=== PATIENT | female | born 1960 | race African-American/Black ===

== ENCOUNTER 2016-06-09 09:58 | Emergency (ER) | payer OTHER ==
[~2016-06-09] VITALS: Ht 157.5 cm; Wt 81.7 kg
--- NOTE | ~2016-06-09 | EKG ---
[place] [address] [facility] [place] [address] ELECTROCARDIOGRAM REPORT Name: MARIA D ARCOS Room #: [facility]#: [id number] Admission: 06/09/16 Attend Phys: Discharge: Date of : 64 Report #: [id number] THIS REPORT FOR: //name// [facility] ED Test Date: 2016-06-09 Test Time: 10:07:23 Pat Name: MARIA D ARCOS Department: Room: Gender: F Machine Tailer: Jasmyne GONZALEZ : 1960 Requested By: Zohaib Rudolph Order Number: [id number] MD: Terrell Strong Measurements Intervals [place] Rate: 83 P: 21 AR: 136 QRS: 10 QRSD: 143 T: 113 QT: 410 QTc: 482 Interpretive Statements Sinus rhythm Left bundle branch block Compared to ECG 06/03/2016 22:03:53 No significant changes Electronically Signed On 06-09-2016 12:16:28 CDT by Terrell Strong [email or web address] <ELECTRONICALLY SIGNED> By: Terrell Strong MD 06/09/16 1216 1007 MD KEMAL Grover
[~2016-06-09 09:58] MED LIST: AEROECLIPSE II1 EACH MC; ALBUTEROL2.5 MG/0.5 INH; ALLEGRA180 MG PO; ALPRAZOLAM 0.50.5 M1 PO; ASPIR 8181 M1 PO; ASPIRIN EC81 M1 PO; ASPIRIN325 PO; CELLCEPT500 MG PO; CYCLOBENZAPRINE10 MG PO; DEXILANT60 MG PO; DIOVAN 80 MG TA80 M1 PO; DIOVAN HCT 80-1 EACH PO; DUEXIS 800-26.1 EACH PO; FLONASE 0.05%50 MCG NASAL; FOLIC ACID 1 MG1 MG PO; HYDROCODON-ACE1 EAC7 PO; HYDROCODONE-AP1 EAC6 PO; HYDROXYCHLOROQ200 M1 PO; HYSINGLA ER20 MG PO; IBUPROFEN 800800 M1 PO; IRON PO; MEDROL DOSPAK21 TA1 PO; MEDROL DOSPAK21 TAB PO; MEDROLDOSEPACK PO; MOBIC15 MG PO; MUCINEX TA600 MG/TA2 PO; NABUMETONE 750750 M1 PO; NORCO 5-325 TA1 EACH PO; PREDNISONE 20 M20 M1 PO; PREDNISONE 20 M20 MG PO; PROTONIX 20 MG20 M1 PO; PROTONIX40 M2 PO; RELAFEN750 MG PO; SINGULAIR 10 MG10 M1 PO; SYMBICORT160 MCG/4. INH; TRAMADOL 50 MG50 MG PO; TYLENOL325 MG PO; VITAMIN D1000 UNI1 PO; VITAMIN D22000 UNIT PO; VITAMIN D250000 UNIT PO; ZOFRAN ODT4 MG OR
[2016-06-09 11:03] LABS: ABSOLUTE NEUTROPHILS 2.6 thou/uL (1.4-8.2); BASOPHILS 0.9 % (0.0-2.0); EOSINOPHILS 0.8 % (0.0-3.0); HEMATOCRIT 35.6 % (37.0-47.0); HEMOGLOBIN 12.3 gm/dL (12.0-15.0); LYMPHOCYTES 33.6 % (24.0-44.0); MCH 32.2 pg (26.0-34.0); MCHC 34.7 g/dL (28.0-37.0); MCV 92.7 fL (80.0-100.0); MONOCYTES 10.5 % (1.0-8.0); PLATELET COUNT 242 thou/uL (150-400); POLYS 54.2 % (36.0-66.0); RBC 3.84 mil/uL (4.20-5.00); RDW 17.3 % (10.5-14.5); WBC 4.8 thou/uL (4.0-11.0)
[2016-06-09 11:09] LABS: MANUAL DIFF NO
[2016-06-09 11:16] LABS: APTT 25.4 Seconds (24.5-32.8); PROTIME 10.5 Seconds (9.3-11.4)
[2016-06-09 12:09] LABS: ANION GAP 9 mmol/L (7-16); BUN 16 mg/dL (7-18); CALCIUM 9.1 mg/dL (8.5-10.1); CHLORIDE 105 mmol/L (98-107); CO2 25 mmol/L (21-32); CREATININE 0.9 mg/dL (0.6-1.0); GLUCOSE 83 mg/dL (74-106); POTASSIUM 3.4 mmol/L (3.5-5.1); SODIUM 139 mmol/L (136-145)
[2016-06-09 12:32] LABS: ALBUMIN 3.8 g/dL (3.4-5.0); ALKALINE PHOSPHATASE 104 U/L (46-116); CK-MB MASS 0.8 ng/mL (<0.5-3.6); NT-PRO BRAIN NAT PEPTIDE 31 pg/mL (<300); SGOT 15 U/L (15-37); SGPT 25 U/L (30-65); TOTAL BILIRUBIN 0.3 mg/dL (<0.1-1.0); TOTAL PROTEIN 7.4 g/dL (6.4-8.2); TROPONIN-I < 0.04 ng/mL (<0.04-0.07)
[2016-06-09] MEDS ORDERED: NAPROSYN500 MG PO (12:59)
[2016-06-09] MEDS ORDERED: PREDNISONE 20 M20 MG PO (12:59)
[2016-06-09] MEDS ORDERED: AUGMENTIN 875-1 EACH PO (12:59)
[2016-06-09 13:17] VITALS: BP 115/73
== END 2016-06-09 13:18 | disposition home or self-care (01) ==
LOC: ER 09:58
PROVIDERS: Emergency Medicine
DX: R07.89 Other chest pain (principal); J30.9 Allergic rhinitis, unspecified; D86.9 Sarcoidosis, unspecified; J32.9 Chronic sinusitis, unspecified; M32.9 Systemic lupus erythematosus, unspecified; I10 Essential (primary) hypertension; K21.9 Gastro-esophageal reflux disease without esophagitis; Z90.710 Acquired absence of both cervix and uterus; Z88.5 Allergy status to narcotic agent

== ENCOUNTER 2016-07-22 08:40 | Emergency (ER) | payer OTHER ==
[~2016-07-22] VITALS: Ht 157.5 cm; Wt 81.7 kg
--- NOTE | ~2016-07-22 | EKG ---
[place] [address] [place] [address] ELECTROCARDIOGRAM REPORT Name: MARIA D ARCOS [facility] [id number] Admission: 07/22/16 Attend Phys: Discharge: Date of : 64 Report #: [id number] THIS REPORT FOR: //name// [facility] ED Test Date: 2016-07-22 Test Time: 08:44:57 Pat Name: MARIA D ARCOS Department: Room: Gender: F Colors Custodian: param hudson : 1960 Requested By: Sarai Christopher Order Number: [id number] MD: Troy Dang Measurements Intervals [place] Rate: 69 P: 53 TN: 165 QRS: 27 QRSD: 137 T: 33 QT: 467 QTc: 501 Interpretive Statements Sinus rhythm Left bundle branch block Compared to ECG 06/09/2016 10:07:23 No significant changes Electronically Signed On 07-22-2016 10:18:42 CDT by Troy Dang [email or web address] <ELECTRONICALLY SIGNED> By: Troy Dang MD, [facility] 07/22/16 1018 0844 0844 Troy Dang MD, FACC /EPI
[~2016-07-22 08:40] MED LIST changes: +AUGMENTIN 875-1 EACH PO; +NAPROSYN500 MG PO
[2016-07-22] MEDS ORDERED: COREG3.125 MG PO (09:08)
[2016-07-22 09:44] LABS: ANION GAP 10 mmol/L (7-16); BUN 14 mg/dL (7-18); CALCIUM 9.4 mg/dL (8.5-10.1); CHLORIDE 107 mmol/L (98-107); CO2 25 mmol/L (21-32); CREATININE 0.9 mg/dL (0.6-1.0); GLUCOSE 113 mg/dL (74-106); POTASSIUM 3.6 mmol/L (3.5-5.1); SODIUM 142 mmol/L (136-145)
[2016-07-22 09:47] LABS: BASOPHILS 0.8 % (0.0-2.0); EOSINOPHILS 1.4 % (0.0-3.0); HEMOGLOBIN 10.5 gm/dL (12.0-15.0); LYMPHOCYTES 45.2 % (24.0-44.0); MCHC 36.1 g/dL (28.0-37.0); MCV 94.1 fL (80.0-100.0); PLATELET COUNT 304 thou/uL (150-400); POLYS 42.6 % (36.0-66.0); RBC 3.08 mil/uL (4.20-5.00); WBC 4.7 thou/uL (4.0-11.0)
[2016-07-22 09:48] LABS: MANUAL DIFF NO
[2016-07-22 09:52] LABS: TROPONIN-I < 0.04 ng/mL (<0.04-0.07)
[2016-07-22] MEDS ORDERED: HYDROCODONE-AP1 EAC6 PO (10:45)
[2016-07-22] MEDS ORDERED: MOBIC7.5 MG PO (10:45)
[2016-07-22 11:11] VITALS: BP 120/79
== END 2016-07-22 11:14 | disposition home or self-care (01) ==
LOC: ER 08:40
PROVIDERS: Emergency Medicine
DX: M25.512 Pain in left shoulder (principal); I10 Essential (primary) hypertension; K21.9 Gastro-esophageal reflux disease without esophagitis; Z90.710 Acquired absence of both cervix and uterus; Z88.5 Allergy status to narcotic agent

== ENCOUNTER 2016-09-25 10:26 | Emergency (ER) | payer OTHER ==
[~2016-09-25] VITALS: Ht 157.5 cm; Wt 81.7 kg
--- NOTE | ~2016-09-25 | EKG ---
[address] [address] ELECTROCARDIOGRAM REPORT Name: ISRRAELMARIA D KATHYA [id number] Admission: 09/25/16 Attend Phys: Discharge: 09/25/16 Date of : 64 Report #: [id number] THIS REPORT FOR: //name// [facility] ED Test Date: 2016-09-25 Test Time: 11:01:06 Pat Name: MARIA D ARCOS Department: Room: Gender: F Sign Fabricator: JACKI : 1960 Requested By: Carlos Sawant Order Number: [id number] MD: Terrell Strong Measurements Intervals [place] Rate: 72 P: 23 MN: 142 QRS: 20 QRSD: 148 T: 33 QT: 470 QTc: 515 Interpretive Statements Sinus rhythm Left bundle branch block Compared to ECG 07/22/2016 08:44:57 No significant changes Electronically Signed On 09-25-2016 16:50:13 CDT by Terrell Strong [email or web address] <ELECTRONICALLY SIGNED> By: Terrell Strong MD 09/25/16 1650 00 00 Terrell Strong MD /APPLE
[~2016-09-25 10:26] MED LIST changes: +COREG3.125 MG PO; +MOBIC7.5 MG PO
[2016-09-25] MEDS ORDERED: NAPROSYN500 MG PO (12:53)
[2016-09-25 13:29] LABS: ABSOLUTE NEUTROPHILS 3.8 thou/uL (1.4-8.2); BASOPHILS 0.5 % (0.0-2.0); EOSINOPHILS 0.3 % (0.0-3.0); HEMATOCRIT 30.7 % (37.0-47.0); LYMPHOCYTES 33.7 % (24.0-44.0); MCH 33.8 pg (26.0-34.0); MCHC 35.7 g/dL (28.0-37.0); MCV 94.5 fL (80.0-100.0); MONOCYTES 9.3 % (1.0-8.0); PLATELET COUNT 230 thou/uL (150-400); POLYS 56.2 % (36.0-66.0); RBC 3.25 mil/uL (4.20-5.00); WBC 6.8 thou/uL (4.0-11.0)
[2016-09-25 13:38] LABS: MANUAL DIFF NO
[2016-09-25 13:46] LABS: CALCIUM 9.5 mg/dL (8.5-10.1); POTASSIUM 3.2 mmol/L (3.5-5.1)
[2016-09-25] MEDS ORDERED: POTASSIUM20 PO (14:09)
[2016-09-25 15:19] VITALS: BP 126/71
== END 2016-09-25 15:20 | disposition home or self-care (01) ==
LOC: ER 10:26
PROVIDERS: Nurse Practitioner
DX: R06.02 Shortness of breath (principal); R07.89 Other chest pain; E87.6 Hypokalemia; I10 Essential (primary) hypertension; K21.9 Gastro-esophageal reflux disease without esophagitis; M32.9 Systemic lupus erythematosus, unspecified; Z90.710 Acquired absence of both cervix and uterus; Z88.5 Allergy status to narcotic agent

== ENCOUNTER 2016-12-18 06:01 | Emergency (ER) | payer OTHER ==
[~2016-12-18] VITALS: Ht 157.5 cm; Wt 81.7 kg
--- NOTE | ~2016-12-18 | EKG ---
[address] [address] ELECTROCARDIOGRAM REPORT Name: MARIA D ARCOS [facility]: [facility] [id number] Admission: 12/18/16 Attend Phys: Discharge: 12/18/16 Date of : 64 Report #: [id number] THIS REPORT FOR: //name// [facility] ED Test Date: 2016-12-18 Test Time: 06:14:44 Pat Name: MARIA D ARCOS Department: Room: Gender: F Vocational Nursing Instructor: rosi : 1960 Requested By: Drake Ashford Order Number: [id number] MD: Terrell Strong Measurements Intervals [place] Rate: 81 P: 43 MN: QRS: 13 QRSD: 144 T: 71 QT: 454 QTc: 527 Interpretive Statements Sinus rhythm Left bundle branch block Compared to ECG 09/25/2016 11:01:06 AV block, complete (third-degree) now present Sinus rhythm no longer present Electronically Signed On 12-18-2016 20:59:35 RESULTS ENGINEER by Terrell Strong [email or web address] <ELECTRONICALLY SIGNED> By: Terrell Strong MD 12/18/16 2059 3 3 Terrell Strong MD /EPI
[~2016-12-18 06:01] MED LIST changes: +CIPRO500 MG PO; +LEVSIN0.125 MG PO; +ONDANSETRON HCL4 M2 PO; +POTASSIUM20 PO; +XANAX 0.5 MG0.5 MG PO
[2016-12-18 06:39] LABS: BASOPHILS 1.1 % (0.0-2.0); EOSINOPHILS 1.1 % (0.0-3.0); HEMATOCRIT 34.2 % (37.0-47.0); HEMOGLOBIN 11.5 gm/dL (12.0-15.0); LYMPHOCYTES 41.6 % (24.0-44.0); MCH 31.1 pg (26.0-34.0); MCHC 33.7 g/dL (28.0-37.0); MCV 92.5 fL (80.0-100.0); MONOCYTES 11.6 % (1.0-8.0); PLATELET COUNT 281 thou/uL (150-400); POLYS 44.6 % (36.0-66.0); RDW 15.6 % (10.5-14.5); WBC 4.5 thou/uL (4.0-11.0)
[2016-12-18 06:40] LABS: MANUAL DIFF NO
[2016-12-18 06:53] LABS: ANION GAP 11 mmol/L (7-16); BUN 17 mg/dL (7-18); CHLORIDE 108 mmol/L (98-107); CO2 24 mmol/L (21-32); CREATININE 0.9 mg/dL (0.6-1.0); GLUCOSE 99 mg/dL (74-106); POTASSIUM 3.8 mmol/L (3.5-5.1); SODIUM 143 mmol/L (136-145)
[2016-12-18 07:02] LABS: ALBUMIN 3.9 g/dL (3.4-5.0); ALKALINE PHOSPHATASE 105 U/L (46-116); SGOT 17 U/L (15-37); SGPT 27 U/L (30-65); TOTAL BILIRUBIN 0.3 mg/dL (<0.1-1.0); TROPONIN-I < 0.04 ng/mL (<0.06)
[2016-12-18] MEDS ORDERED: PREDNISONE 20 M20 MG PO (07:52)
[2016-12-18 08:13] VITALS: BP 155/71
== END 2016-12-18 08:10 | disposition home or self-care (01) ==
LOC: ER 06:01
PROVIDERS: Emergency Medicine
DX: R06.00 Dyspnea, unspecified (principal); M32.9 Systemic lupus erythematosus, unspecified; I10 Essential (primary) hypertension; K21.9 Gastro-esophageal reflux disease without esophagitis; D86.9 Sarcoidosis, unspecified; Z88.5 Allergy status to narcotic agent; Z90.710 Acquired absence of both cervix and uterus

== ENCOUNTER 2017-02-10 05:18 | Emergency (ER) | payer OTHER ==
[~2017-02-10] VITALS: Ht 157.5 cm; Wt 81.7 kg
--- NOTE | ~2017-02-10 | EKG ---
[address] [address] ELECTROCARDIOGRAM REPORT Name: ISRRAELMARIA D KATHYA Room #: [facility] [id number] Admission: 02/10/17 Attend Phys: Discharge: 02/10/17 Date of : 64 Report #: [id number] THIS REPORT FOR: //name// [facility] ED Test Date: 2017-02-10 Test Time: 07:07:09 Pat Name: MARIA D ARCOS Department: Room: Gender: F Cardiac Nurse Specialist: WALLACE : 1960 Requested By: Sarai Christopher Order Number: [id number] MD: Terrell Strong Measurements Intervals [place] Rate: 89 P: 11 TN: 140 QRS: 22 QRSD: 142 T: 144 QT: 417 QTc: 508 Interpretive Statements Sinus rhythm Left bundle branch block Compared to ECG 12/18/2016 06:14:44 No significant changes Electronically Signed On 02-10-2017 8:30:49 INFORMATION SECURITY SYSTEMS INSTRUCTOR by Terrell Strong [email or web address] <ELECTRONICALLY SIGNED> By: Terrell Strong MD 02/10/1730 6 6 Terrell Strong MD /APPLE
[2017-02-10 06:08] LABS: ANION GAP 9 mmol/L (7-16); BUN 20 mg/dL (7-18); CALCIUM 9.4 mg/dL (8.5-10.1); CHLORIDE 106 mmol/L (98-107); CO2 27 mmol/L (21-32); CREATININE 0.9 mg/dL (0.6-1.0); GLUCOSE 108 mg/dL (74-106); SODIUM 142 mmol/L (136-145)
[2017-02-10 06:15] LABS: ABSOLUTE NEUTROPHILS 6.4 thou/uL (1.4-8.2); ALBUMIN 3.7 g/dL (3.4-5.0); BASOPHILS 0.4 % (0.0-2.0); DIRECT BILIRUBIN < 0.1 mg/dL (<0.1-0.3); EOSINOPHILS 0.6 % (0.0-3.0); HEMATOCRIT 31.4 % (37.0-47.0); HEMOGLOBIN 11.4 gm/dL (12.0-15.0); LIPASE 258 U/L (73-393); LYMPHOCYTES 10.1 % (24.0-44.0); MCH 33.8 pg (26.0-34.0); MCHC 36.3 g/dL (28.0-37.0); MONOCYTES 6.5 % (1.0-8.0); PLATELET COUNT 255 thou/uL (150-400); POLYS 82.4 % (36.0-66.0); RBC 3.37 mil/uL (4.20-5.00); RDW 15.7 % (10.5-14.5); SGOT 22 U/L (15-37); SGPT 33 U/L (30-65); TOTAL BILIRUBIN 0.4 mg/dL (<0.1-1.0); TOTAL PROTEIN 7.2 g/dL (6.4-8.2); WBC 7.8 thou/uL (4.0-11.0)
[2017-02-10] MEDS ORDERED: CITRATE OF MAG296 ML PO (06:36)
[2017-02-10] MEDS ORDERED: PHENERGAN 25 MG25 M1 PO (06:36)
[2017-02-10] MEDS ORDERED: ZOFRAN ODT4 MG PO (06:36)
[2017-02-10 07:26] LABS: URINE BILIRUBIN NEGATIVE (Negative); URINE BLOOD NEGATIVE (Negative); URINE CLARITY CLEAR; URINE COLOR YELLOW; URINE GLUCOSE-RANDOM* NEGATIVE (Negative); URINE KETONES NEGATIVE (Negative); URINE LEUKOCYTES-REFLEX NEGATIVE (Negative); URINE NITRITE-REFLEX NEGATIVE (Negative); URINE PROTEIN (DIPSTICK) NEGATIVE (Negative); URINE SPECIFIC GRAVITY <= 1.005 (1.005-1.035); URINE UROBILINOGEN 0.2 E.U./dl (0.2-1.0)
[2017-02-10 07:28] VITALS: BP 129/77
== END 2017-02-10 07:30 | disposition home or self-care (01) ==
LOC: ER 05:18
PROVIDERS: Emergency Medicine
DX: R10.9 Unspecified abdominal pain (principal); I10 Essential (primary) hypertension; K21.9 Gastro-esophageal reflux disease without esophagitis; D86.9 Sarcoidosis, unspecified; Z90.710 Acquired absence of both cervix and uterus; Z88.6 Allergy status to analgesic agent

== ENCOUNTER 2017-02-14 08:11 | Emergency (ER) | payer OTHER ==
[~2017-02-14] VITALS: Ht 157.5 cm; Wt 81.7 kg
[~2017-02-14 08:11] MED LIST changes: +CITRATE OF MAG296 ML PO; +PHENERGAN 25 MG25 M1 PO; +ZOFRAN ODT4 MG PO
[2017-02-14 10:19] LABS: ABSOLUTE NEUTROPHILS 1.3 thou/uL (1.4-8.2); BASOPHILS 1.1 % (0.0-2.0); EOSINOPHILS 1.4 % (0.0-3.0); HEMATOCRIT 32.3 % (37.0-47.0); LYMPHOCYTES 46.1 % (24.0-44.0); MCH 31.4 pg (26.0-34.0); MCHC 34.1 g/dL (28.0-37.0); MCV 91.9 fL (80.0-100.0); MONOCYTES 10.3 % (1.0-8.0); PLATELET COUNT 238 thou/uL (150-400); POLYS 41.1 % (36.0-66.0); RBC 3.51 mil/uL (4.20-5.00); RDW 15.5 % (10.5-14.5); WBC 3.1 thou/uL (4.0-11.0)
[2017-02-14 10:27] LABS: CALCIUM 9.4 mg/dL (8.5-10.1); CREATININE 0.9 mg/dL (0.6-1.0)
[2017-02-14 10:32] LABS: ALBUMIN 3.5 g/dL (3.4-5.0); TOTAL BILIRUBIN 0.2 mg/dL (<0.1-1.0); TOTAL PROTEIN 6.9 g/dL (6.4-8.2)
[2017-02-14 11:14] LABS: URINE BILIRUBIN NEGATIVE (Negative); URINE BLOOD NEGATIVE (Negative); URINE CLARITY CLEAR; URINE COLOR YELLOW; URINE GLUCOSE-RANDOM* NEGATIVE (Negative); URINE KETONES NEGATIVE (Negative); URINE LEUKOCYTES NEGATIVE (Negative); URINE NITRITE NEGATIVE (Negative); URINE PROTEIN (DIPSTICK) NEGATIVE (Negative); URINE UROBILINOGEN 0.2 E.U./dl (0.2-1.0)
[2017-02-14] MEDS ORDERED: MIRALAX17 GM PO (11:24)
[2017-02-14 12:21] VITALS: BP 99/53
== END 2017-02-14 12:22 | disposition home or self-care (01) ==
LOC: ER 08:11
PROVIDERS: Physician Assistant
DX: K59.00 Constipation, unspecified (principal); R11.2 Nausea with vomiting, unspecified; M32.9 Systemic lupus erythematosus, unspecified; I10 Essential (primary) hypertension; K21.9 Gastro-esophageal reflux disease without esophagitis; D86.9 Sarcoidosis, unspecified; Z90.710 Acquired absence of both cervix and uterus; Z88.5 Allergy status to narcotic agent

== ENCOUNTER 2017-03-26 10:35 | Emergency (ER) | payer OTHER ==
[~2017-03-26] VITALS: Ht 157.5 cm; Wt 85.3 kg
--- NOTE | ~2017-03-26 | EKG ---
[place] [address] [facility] [place] [address] ELECTROCARDIOGRAM REPORT Name: MARIA D ARCOS [facility] [id number] Admission: 03/26/17 Attend Phys: Discharge: 03/26/17 Date of : 64 Report #: [id number] THIS REPORT FOR: //name// [facility] ED Test Date: 2017-03-26 Test Time: 12:23:01 Pat Name: MARIA D ARCOS Department: Room: Gender: F Certified Forklift Operator: KKODJOVI : 1960 Requested By: Sarai Christopher Order Number: [id number] MD: Troy Dang Measurements Intervals [place] Rate: 64 P: 7 [place]: 155 QRS: 16 QRSD: 120 T: 80 QT: 452 QTc: 467 Interpretive Statements Sinus rhythm Possible ventricular preexcitation Compared to ECG 02/10/2017 07:07:09 Left bundle-branch block no longer present Electronically Signed On 03-26-2017 17:33:12 STULL INSTALLER by Troy Dang [email or web address] <ELECTRONICALLY SIGNED> By: Troy Dang MD, [facility] 03/26/17 1733 1223 1223 Troy Dang MD, [facility] /EPI
[~2017-03-26 10:35] MED LIST changes: +MIRALAX17 GM PO
[2017-03-26] MEDS ORDERED: VALSARTAN-HCTZ1 EACH PO (11:51)
[2017-03-26] MEDS ORDERED: XALATAN2.5 ML OPHTHALMIC (11:51)
[2017-03-26] MEDS ORDERED: TOBRAMYCIN-DEXAM5 ML OPHTHALMIC (11:52)
[2017-03-26 12:20] LABS: ABSOLUTE NEUTROPHILS 2.4 thou/uL (1.4-8.2); BASOPHILS 0.8 % (0.0-2.0); EOSINOPHILS 0.6 % (0.0-3.0); HEMATOCRIT 35.3 % (37.0-47.0); HEMOGLOBIN 11.5 gm/dL (12.0-15.0); LYMPHOCYTES 36.1 % (24.0-44.0); MCH 29.3 pg (26.0-34.0); MCHC 32.6 g/dL (28.0-37.0); MCV 89.7 fL (80.0-100.0); MONOCYTES 10.6 % (1.0-8.0); PLATELET COUNT 280 thou/uL (150-400); POLYS 51.9 % (36.0-66.0); RBC 3.93 mil/uL (4.20-5.00); RDW 15.7 % (10.5-14.5); WBC 4.7 thou/uL (4.0-11.0)
[2017-03-26 12:27] LABS: ANION GAP 12 mmol/L (7-16); BUN 18 mg/dL (7-18); CALCIUM 9.7 mg/dL (8.5-10.1); CHLORIDE 105 mmol/L (98-107); CO2 27 mmol/L (21-32); CREATININE 0.9 mg/dL (0.6-1.0); GLUCOSE 96 mg/dL (74-106); POTASSIUM 3.5 mmol/L (3.5-5.1); SODIUM 144 mmol/L (136-145)
[2017-03-26 12:36] LABS: TROPONIN-I < 0.04 ng/mL (<0.06)
[2017-03-26 14:10] VITALS: BP 115/79
== END 2017-03-26 14:12 | disposition home or self-care (01) ==
LOC: ER 10:35
PROVIDERS: Emergency Medicine
DX: R53.83 Other fatigue (principal); R06.00 Dyspnea, unspecified; I10 Essential (primary) hypertension; K21.9 Gastro-esophageal reflux disease without esophagitis; Z90.710 Acquired absence of both cervix and uterus; Z88.5 Allergy status to narcotic agent; Z88.6 Allergy status to analgesic agent

== ENCOUNTER 2017-08-05 10:24 | Emergency (ER) | payer OTHER ==
[~2017-08-05] VITALS: Ht 157.5 cm; Wt 85.7 kg
[~2017-08-05 10:24] MED LIST changes: +TOBRAMYCIN-DEXAM5 ML OPHTHALMIC; +VALSARTAN-HCTZ1 EACH PO; +XALATAN2.5 ML OPHTHALMIC
[2017-08-05 10:50] LABS: URINE BILIRUBIN NEGATIVE (Negative); URINE BLOOD NEGATIVE (Negative); URINE CLARITY CLEAR; URINE COLOR YELLOW; URINE GLUCOSE-RANDOM* NEGATIVE (Negative); URINE KETONES NEGATIVE (Negative); URINE LEUKOCYTES NEGATIVE (Negative); URINE NITRITE NEGATIVE (Negative); URINE PROTEIN (DIPSTICK) NEGATIVE (Negative); URINE UROBILINOGEN 0.2 E.U./dl (0.2-1.0)
[2017-08-05 11:12] LABS: POTASSIUM 3.6 mmol/L (3.5-5.1)
[2017-08-05 11:15] LABS: ABSOLUTE NEUTROPHILS 2.2 thou/uL (1.4-8.2); EOSINOPHILS 0.8 % (0.0-3.0); HEMOGLOBIN 12.1 gm/dL (12.0-15.0); LYMPHOCYTES 30.5 % (24.0-44.0); MCHC 36.8 g/dL (28.0-37.0); MCV 92.4 fL (80.0-100.0); MONOCYTES 10.2 % (1.0-8.0); PLATELET COUNT 249 thou/uL (150-400); POLYS 57.5 % (36.0-66.0); RBC 3.57 mil/uL (4.20-5.00); RDW 15.5 % (10.5-14.5); WBC 3.8 thou/uL (4.0-11.0)
[2017-08-05 11:18] LABS: ALBUMIN 3.9 g/dL (3.4-5.0); DIRECT BILIRUBIN 0.1 mg/dL (<0.1-0.3); TOTAL BILIRUBIN 0.3 mg/dL (<0.1-1.0)
[2017-08-05] MEDS ORDERED: NORCO 5-325 TA1 EACH PO (11:45)
[2017-08-05 12:07] VITALS: BP 123/73
[2017-08-05 12:41] LABS: ANISOCYTOSIS 1+
== END 2017-08-05 12:08 | disposition home or self-care (01) ==
LOC: ER 10:24
PROVIDERS: Emergency Medicine
DX: M79.7 Fibromyalgia (principal); I10 Essential (primary) hypertension; K21.9 Gastro-esophageal reflux disease without esophagitis; Z90.10 Acquired absence of unspecified breast and nipple; Z90.710 Acquired absence of both cervix and uterus; Z88.5 Allergy status to narcotic agent; Z88.8 Allergy status to other drugs, medicaments and biological substances

== ENCOUNTER 2017-11-16 06:47 | Emergency (ER) | payer OTHER ==
[~2017-11-16] VITALS: Ht 157.5 cm; Wt 88.9 kg
--- NOTE | ~2017-11-16 | EKG ---
[place] [address] [facility] [place] [address] ELECTROCARDIOGRAM REPORT Name: ARCOSMARIA D NEWSOMENE [facility] [id number] Admission: 11/16/17 Attend Phys: Discharge: Date of : 64 Report #: [id number] THIS REPORT FOR: //name// [facility] ED Test Date: 2017-11-16 Test Time: 07:10:58 Pat Name: MARIA D ARCOS Department: Room: Gender: F Blood Donor Unit Assistant: [facility] : 1960 Requested By: Sarai Christopher Order Number: [id number] MD: Terrell Strong Measurements Intervals [place] Rate: 67 P: 42 [place]: 128 QRS: 21 QRSD: 147 T: 54 QT: 477 QTc: 504 Interpretive Statements Sinus rhythm Left bundle branch block Compared to ECG 03/26/2017 12:23:01 Left bundle-branch block now present Electronically Signed On 11-16-2017 8:22:20 CDT by Terrell Strong [email or web address] <ELECTRONICALLY SIGNED> By: Terrell Strong MD 11/16/17 0822 0710 9 Terrell Strong MD /APPLE
[2017-11-16] MEDS ORDERED: COZAAR 25 MG TA25 M1 PO (07:33)
[2017-11-16 07:43] LABS: ABSOLUTE NEUTROPHILS 2.3 thou/uL (1.4-8.2); BASOPHILS 1.4 % (0.0-2.0); EOSINOPHILS 1.2 % (0.0-3.0); HEMOGLOBIN 12.2 gm/dL (12.0-15.0); LYMPHOCYTES 38.4 % (24.0-44.0); MCH 32.2 pg (26.0-34.0); MCHC 34.9 g/dL (28.0-37.0); MCV 92.4 fL (80.0-100.0); MONOCYTES 10.8 % (1.0-8.0); PLATELET COUNT 244 thou/uL (150-400); POLYS 48.2 % (36.0-66.0); RBC 3.79 mil/uL (4.20-5.00); RDW 15.3 % (10.5-14.5); WBC 4.8 thou/uL (4.0-11.0)
[2017-11-16 08:05] LABS: ANION GAP 9 mmol/L (7-16); BUN 19 mg/dL (7-18); CHLORIDE 105 mmol/L (98-107); CO2 29 mmol/L (21-32); GLUCOSE 99 mg/dL (74-106); POTASSIUM 3.2 mmol/L (3.5-5.1); SODIUM 143 mmol/L (136-145)
[2017-11-16 08:14] LABS: TROPONIN-I <0.06 ng/mL (<0.06)
[2017-11-16] MEDS ORDERED: PREDNISONE 20 M20 M1 PO (10:44)
[2017-11-16 11:19] VITALS: BP 137/68
== END 2017-11-16 11:28 | disposition home or self-care (01) ==
LOC: ER 06:47
PROVIDERS: Emergency Medicine
DX: R07.89 Other chest pain (principal); M32.9 Systemic lupus erythematosus, unspecified; I10 Essential (primary) hypertension; K21.9 Gastro-esophageal reflux disease without esophagitis; Z90.710 Acquired absence of both cervix and uterus; Z88.5 Allergy status to narcotic agent; Z79.899 Other long term (current) drug therapy

== ENCOUNTER 2018-04-20 19:12 | Inpatient (IN) | payer OTHER ==
[~2018-04-20] VITALS: Ht 157.5 cm; Wt 83.9 kg
[~2018-04-20 19:12] MED LIST changes: +COZAAR 25 MG TA25 M1 PO
[2018-04-20 19:20] VITALS: BP 147/81
--- NOTE | 2018-04-20 20:00 | NUR ---
XRAY AT BEDSIDE
[2018-04-20 20:05] LABS: HEMOGLOBIN 10.5 gm/dL (12.0-15.0)
[2018-04-20 20:06] LABS: ABSOLUTE NEUTROPHILS 5.5 thou/uL (1.4-8.2); BASOPHILS 0.3 % (0.0-2.0); EOSINOPHILS 0.9 % (0.0-3.0); HEMATOCRIT 30.9 % (37.0-47.0); LYMPHOCYTES 5.2 % (24.0-44.0); MCH 30.9 pg (26.0-34.0); MCHC 33.9 g/dL (28.0-37.0); MCV 91.2 fL (80.0-100.0); MONOCYTES 4.7 % (1.0-8.0); PLATELET COUNT 255 thou/uL (150-400); POLYS 88.9 % (36.0-66.0); RBC 3.39 mil/uL (4.20-5.00); RDW 16.6 % (10.5-14.5); WBC 6.2 thou/uL (4.0-11.0)
[2018-04-20 20:11] LABS: CALCIUM 8.7 mg/dL (8.5-10.1); POTASSIUM 3.8 mmol/L (3.5-5.1)
[2018-04-20 20:18] LABS: ALBUMIN 3.4 g/dL (3.4-5.0); DIRECT BILIRUBIN 0.1 mg/dL (<0.1-0.3); TOTAL BILIRUBIN 0.2 mg/dL (<0.1-1.0)
[2018-04-20 22:58] LABS: URINE BILIRUBIN NEGATIVE (Negative); URINE BLOOD NEGATIVE (Negative); URINE CLARITY CLEAR; URINE COLOR YELLOW; URINE GLUCOSE-RANDOM* NEGATIVE (Negative); URINE KETONES NEGATIVE (Negative); URINE NITRITE-REFLEX NEGATIVE (Negative); URINE PROTEIN (DIPSTICK) NEGATIVE (Negative); URINE UROBILINOGEN 0.2 E.U./dl (0.2-1.0)
[2018-04-20 22:59] LABS: URINE LEUKOCYTES-REFLEX 1+ (Negative)
[2018-04-20 23:29] LABS: CASTS None Seen /LPF (None Seen); MUCUS None Seen strn/LPF (None Seen); SQUAMOUS 0-3 Few /LPF (0-3)
[2018-04-20 23:30] LABS: BACTERIA-REFLEX None Seen /HPF (None Seen); CRYSTALS None Seen /LPF (None Seen); URINE RBC None Seen /HPF (0-2); URINE WBC-REFLEX 0-5 Rare /HPF (0-5)
[2018-04-21 02:06] VITALS: BP 113/49
[2018-04-21 03:11] VITALS: BP 127/65
[2018-04-21 03:15] VITALS: BP 109/58
--- NOTE | 2018-04-21 05:00 | NUR ---
PT ARRIVED ON UNIT FROM ER AT APPROX. 0300. ADMITTED WITH FEVER AND BODY ACHES. NEGATIVE FOR FLU. UP WITH ASSIST TO BEDSIDE COMMODE. LORTAB PROVIDING PAIN RELIEF. RESTING COMFORTABLY. NO NEEDS VOICED. CALL LIGHT WITHIN REACH. WILL CONTINUE TO PROVIDE FREQUENT OBSERVATION.
[2018-04-21 06:08] LABS: HEMATOCRIT 26.5 % (37.0-47.0); MCH 31.2 pg (26.0-34.0); MCHC 33.8 g/dL (28.0-37.0); MCV 92.2 fL (80.0-100.0); RBC 2.87 mil/uL (4.20-5.00); RDW 16.6 % (10.5-14.5); WBC 4.6 thou/uL (4.0-11.0)
[2018-04-21 06:19] LABS: CALCIUM 8.1 mg/dL (8.5-10.1); CREATININE 0.8 mg/dL (0.6-1.0); POTASSIUM 3.3 mmol/L (3.5-5.1)
[2018-04-21 08:38] VITALS: BP 131/77
[2018-04-21] MEDS ORDERED: ASPIR-TRIN325 MG PO (15:56)
[2018-04-21 16:40] VITALS: BP 114/61
--- NOTE | 2018-04-21 16:54 | NUR ---
ASSESMENT COMPLETED. VSS. A/O. PAIN MANAGED BY MEDS ORDERED. NO NOTED SOA. NO NV. STAND BY WHEN UP. TMAX 100.6 TODAY. TYLENOL GIVEN. HAD SHOWER TODAY. PT FEELING BETTER THIS AFTERNOON. WILL CONT. TO MONITOR.
[2018-04-21 20:28] VITALS: BP 119/72
[2018-04-22 05:04] VITALS: BP 118/59
[2018-04-22 06:07] LABS: HEMATOCRIT 26.1 % (37.0-47.0); HEMOGLOBIN 8.7 gm/dL (12.0-15.0); MCH 30.4 pg (26.0-34.0); MCHC 33.3 g/dL (28.0-37.0); MCV 91.2 fL (80.0-100.0); RBC 2.86 mil/uL (4.20-5.00); RDW 16.6 % (10.5-14.5); WBC 3.6 thou/uL (4.0-11.0)
--- NOTE | 2018-04-22 06:51 | NUR ---
UP AD AIDE TO BS. C/O SEVERE HEADACHE, CHRONIC, SLEPT AFTER PM PRN DOSE GIVEN. TEMP 98.1 AT MIDNIGHT. SCDS ON. SMALL BM X 1.
[2018-04-22 07:46] VITALS: BP 118/63
--- NOTE | 2018-04-22 13:24 | NUR ---
Assumed pt care at 7am.Pt in and out of bed for activities.Assessment completed.vss.Pt was angry related to spicy fried egg served for breakfast. Rn told pt to order another tray but denied by fast food delivery driver.Pt called her to bring food for her from home.Dr Strong and Jamie here,order noted.Mri notified about lab drawn prior to pt coming for hip mri later today. Lozenges given for sore throat.Will continue to monitor.
--- NOTE | 2018-04-22 16:35 | NUR ---
ASSESSMENT-PT LIVES IN A GROUND LEVEL APT WITH HER . PT USES A CANE OUTSIDE OF THE HOME AND A WALKER INSIDE. SHE NAD HER DRIVE. PT HAS HAD [employer] SERVICES. PT HAS A STOOL RISER AND A TUB BAR AND CHAIR INSIDE OF THE TUB. THEYHAVE 2 SON AND 2 GRNDKIDS IN THE AREA. PT HAS A NEBULIZER AT HOME. HE DOES THE COOKING, CLEANING AND LAUNDRY. PT HAD HER HIP SURGERY [facility] BY DR PHILLIPS. FOLLOWING TO ASSIST WITH DC PLANNING.
[2018-04-22 22:43] VITALS: BP 126/59
[2018-04-23 05:22] VITALS: BP 134/67
--- NOTE | 2018-04-23 06:09 | NUR ---
Assumed care of pt at 1900. Pt a&ox4. Pt frustrated with her medical situation. Therapeutic communication used. Call light within reach. Will continue to monitor.
[2018-04-23 08:39] VITALS: BP 148/81
--- NOTE | 2018-04-23 09:12 | HC ---
[facility] [place] [address] CONSULTATION Name: MARIA D ARCOS Room #: 432-P ADM IN M.R.#: [id number] Admission: 04/21/18 ������������������ Attend Phys: Luann Ayala Discharge: ������������������ Date of : 64 Report #: [id number] THIS REPORT FOR: //name// CC: FAM physician/PCP Luann Faulkner MD DATE OF SERVICE: 04/22/2018 TYPE OF REPORT: Infectious disease consultation. ATTENDING PHYSICIAN: Luann Ayala M.D. REASON FOR CONSULTATION: Fever, yeast. HISTORY OF PRESENT ILLNESS: The patient is a 57-year-old -[place] woman admitted with history of fevers, chills, body aches and pains, sore throat and right hip pain. The patient is an immunocompromised host on account of treatment for sarcoidosis and lupus with combination of Rituxan monthly, CellCept and hydroxychloroquine daily. The patient is afebrile since admission now but had high temperatures on the date of admission. The patient obviously is still complaining of some right hip pain since her surgery was done about couple of months ago at [facility]. The patient mainly complaining now that she does not want to have an MRI because of the severe sore throat and other than that, she brings no other complaints to my attention. She relates the above symptoms but she appears to have improved. DRUG ALLERGIES: MORPHINE and HYDROMORPHONE. MEDICATIONS: She is currently on treatment with benzocaine/menthol/cetirizine for sore throat, fluconazole nasal sprays, Latanoprost eyedrops, alprazolam, mycophenolate mofetil 1000 mg by mouth twice daily, hydroxychloroquine 200 mg p.o. b.i.d., Rituxan monthly infusions, p.r.n. alprazolam, cholecalciferol, pantoprazole, losartan, carvedilol, albuterol inhalation treatment as needed, budesonide, hydrocodone p.r.n., acetaminophen p.r.n., ondansetron p.r.n. and vancomycin intravenously. PAST MEDICAL HISTORY: Diagnosed at [facility] years ago through a mediastinoscopy to have pulmonary sarcoidosis. She also carries a diagnosis of systemic lupus. I do not delve into the symptomatology of that problem. I believe she has right total hip replacement in February 2018 at [facility]. See also had previous appendectomy. Allergic rhinitis, chronic constipation and fibromyalgia. For details, see H and P. SOCIAL HISTORY: See H and P, old records. [address] [address] CONSULTATION Name: MARIA D ARCOS Room #: [facility] IN M.R.#: [id number] Admission: 04/21/18 ������������������ Attend Phys: Luann Ayala Discharge: ������������������ Date of : 64 Report #: [id number] FAMILY HISTORY: See H and P, old records. REVIEW OF SYSTEMS: As above. PHYSICAL EXAMINATION: GENERAL: This is a well-developed, well-nourished actually overweight looking -[place]ian woman. VITAL SIGNS: Presenting temperature of 101.5 on April 20 and she had been afebrile since 8:38 a.m. yesterday when her temperature was 100.5 and today's temperature is 99, pulse 84, respirations 18, BP 119/63, height 5 feet 2 inches and weight 185 pounds. HEENMT: Pupils reactive. Mouth: No thrush, hairy leukoplakia. NECK: Supple. No thyromegaly. EXTREMITIES: She has surgical scars of previous mediastinoscopy. BREASTS: Deferred. LUNGS: Clear to auscultation. HEART: S1 and S2. No gallops or murmur. ABDOMEN: Soft, without masses or megaly. PELVIC AND RECTAL: Deferred. EXTREMITIES: The range of motion of knees and hips are actually normal. She experiences discomfort on motion of right hip. This discomfort, not clinically compatible with septic hip. No pretibial edema. NEUROLOGICAL: Grossly within normal limits. LABORATORY DATA: Revealed the following abnormals: Potassium 3.3, alkaline phosphatase 135. Hypocalcemia of 8.1, possibly reflecting hypoalbuminemia. The C-reactive protein was 11.6 mg/dL. I ordered a repeat today is only 39.8, possibly incompatible with acute infection process. Her hemoglobin was 10.5 on admission and today is 8.7 mg/dL. The white blood cell count was 6200 on admission and dropped to 3600 today. Platelets normal. Urinalysis negative. MICROBIOLOGY DATA: Blood cultures were obtained on admission and they remain negative so far. Urine culture pending. RADIOLOGY EVALUATION: An x-ray of the right hip revealed the femoral and a hip components to be well seated with no lucencies whatsoever. The radiologist described some soft tissue swelling and obviously, I cannot see dose. ASSESSMENT: 1. Febrile illness with chills, body aches and pains and sore throat, entertained possibility of viral infection. 2. Mild elevation of CRP. 3. Right hip pain, question post-surgical status post total hip replacement in February 2018. 4. Sarcoidosis and systemic lupus erythematosus, on treatment with CellCept, Rituxan and hydroxychloroquine. [address] [address] CONSULTATION Name: MARIA D ARCOS Room #: 432-P ADM IN M.R.#: [id number] Admission: 04/21/18 ������������������ Attend Phys: Luann Ayala Discharge: ������������������ Date of : 64 Report #: [id number] 5. Anemia and leukopenia, question etiology. SUGGESTIONS: Recommend repeat CRP and ESR. If those only mildly elevated, I suspect we might be dealing with a viral type infection and favor discontinuation of vancomycin. May proceed with MRI, though I suspect it will be negative. Discontinue vancomycin today. Discussed situation with Dr. Ayala. Dr. Ayala, thank you for requesting my suggestions. ��������������������������������������������� <ELECTRONICALLY SIGNED> ���������������������������������������� By: Jc Strong MD ��������������������������������������������� 04/23/18 0912 1230 2318 Jc Strong MD /nt
[2018-04-23] MEDS ORDERED: NABUMETONE 750750 M1 PO (10:32)
[2018-04-23 11:44] VITALS: BP 148/81
[2018-04-23 12:02] VITALS: BP 124/66
--- NOTE | 2018-04-23 14:11 | NUR ---
PT CAME INTO THE ED WITH A FEVER AND PAIN TO THE RIGHT HIP TWO DAYS AGO. WHEN SEEING THE PT THIS MORNING SHE WAS ALERT AND ORIENTED X4. SHE WAS ENERGETIC THIS MORNING AND IN MINOR OAIN. LATER IN THE DAY SHE NEEDED HYDROCODONE BECAUSE HER IN BOTH HIPS WORSENED. AFTER BREAKFAST SHE TOOK HER MEDS BUT REFUSED MYCOPHENELATE BC THE CAPSULES WERE TO BIG TO SWALLOW. PT IS BEING DISCHARGED TODAY. IV WAS DISCONTINUED AND WHEN BEING PULLED OUT PT HAD SLIGHT BLEEDING AT THE SITE. PT ATE LUNCH AND SHOWERED WITHOUT ASSISTANCE, PT TOLERATED ACTIVITY WELL.
--- NOTE | 2018-04-23 14:25 | NUR ---
I have reviewed and concur with student documentation.
[2018-04-23 17:01] VITALS: BP 131/71
[2018-04-23 18:13] VITALS: BP 131/71
--- NOTE | 2018-04-23 19:45 | NUR ---
Assumed pt care at 7am.Pt up adlib in the room with cane.Assessment completed. vss.Dr Ayala here and dc order noted.Dc valentín compiled and reviewed with pt.When pt rx and dc summary given to pt,she said she's not going home until shift change because her was at work.At 1830,pt dc home with in .
== END 2018-04-23 18:30 | disposition home or self-care (01) | DRG 871 ==
LOC: ER 19:12 → 4E 04-21 01:50 → EROBS 04-21 01:50 → 4E 04-21 02:55 → ENTRNSPT 04-23 18:28 → 4E 04-23 18:30
PROVIDERS: Emergency Medicine; Nurse Practitioner Family; ADMIT Hospitalist
DX: A41.9 Sepsis, unspecified organism (principal); E43 Unspecified severe protein-calorie malnutrition; L03.115 Cellulitis of right lower limb; N39.0 Urinary tract infection, site not specified; I10 Essential (primary) hypertension; K21.9 Gastro-esophageal reflux disease without esophagitis; M32.9 Systemic lupus erythematosus, unspecified; Z96.641 Presence of right artificial hip joint; J02.9 Acute pharyngitis, unspecified; D64.9 Anemia, unspecified; D72.819 Decreased white blood cell count, unspecified; F41.9 Anxiety disorder, unspecified; M70.71 Other bursitis of hip, right hip; Z79.82 Long term (current) use of aspirin; Z79.899 Other long term (current) drug therapy; Z90.710 Acquired absence of both cervix and uterus; Z88.6 Allergy status to analgesic agent; Z90.49 Acquired absence of other specified parts of digestive tract; Z83.3 Family history of diabetes mellitus; Z86.73 Personal history of transient ischemic attack (TIA), and cerebral infarction without residual deficits; Z80.9 Family history of malignant neoplasm, unspecified
CPT/HCPCS: 10084

== ENCOUNTER 2018-08-16 06:30 | Emergency (ER) | payer OTHER ==
[~2018-08-16] VITALS: Ht 157.5 cm; Wt 86.2 kg
[~2018-08-16 06:30] MED LIST changes: +ASPIR-TRIN325 MG PO
--- NOTE | 2018-08-16 07:32 | EKG ---
[facility] [place] [address] ELECTROCARDIOGRAM REPORT Name: ARCOSMARIA D NEWSOMENE Room #: [facility]#: [id number] ������������������ Admission: ������������������ Attend Phys: Discharge: ������������������ Date of : 64 Report #: [id number] ����������������������������������������������������������������� [id number] THIS REPORT FOR: //name// [facility] ED Test Date: 2018-08-16 Test Time: 06:41:24 Pat Name: MARIA D ARCOS Department: Room: Gender: F Proj Mgr: ERIK : 1960 Requested By: Zohaib Rudolph Order Number: [id number] MD: Troy Dang Measurements Intervals [place] Rate: 72 P: 43 [place]: 164 QRS: 6 QRSD: 149 T: 79 QT: 445 QTc: 488 Interpretive Statements Sinus rhythm Left bundle branch block Baseline wander in lead(s) V5 Compared to ECG 11/16/2017 07:10:58 No significant changes Electronically Signed On 08-16-2018 7:32:47 CDT by Troy Dang [email or web address] ��������������������������������������������� <ELECTRONICALLY SIGNED> ���������������������������������������� By: Troy Dang MD, [facility] ��������������������������������������������� 08/16/18 0732 0641 06 Troy Dang MD, FACC /EPI
[2018-08-16 08:31] LABS: HEMATOCRIT 38.4 % (37.0-47.0); HEMOGLOBIN 12.7 gm/dL (12.0-15.0); MCH 29.5 pg (26.0-34.0); MCHC 33.1 g/dL (28.0-37.0); MCV 88.9 fL (80.0-100.0); PLATELET COUNT 248 thou/uL (150-400); RBC 4.32 mil/uL (4.20-5.00); RDW 17.6 % (10.5-14.5); WBC 3.2 thou/uL (4.0-11.0)
[2018-08-16 08:40] LABS: ANION GAP 9 mmol/L (7-16); BUN 17 mg/dL (7-18); CALCIUM 10.1 mg/dL (8.5-10.1); CHLORIDE 105 mmol/L (98-107); CO2 28 mmol/L (21-32); CREATININE 0.9 mg/dL (0.6-1.0); GLUCOSE 97 mg/dL (74-106); SODIUM 142 mmol/L (136-145)
[2018-08-16 08:49] LABS: ALBUMIN 4.4 g/dL (3.4-5.0); MAGNESIUM 2.5 mg/dL (1.8-2.4); SGOT 23 U/L (15-37); SGPT 38 U/L (30-65); TOTAL BILIRUBIN 0.4 mg/dL (<0.1-1.0); TOTAL PROTEIN 8.1 g/dL (6.4-8.2); TROPONIN-I <0.06 ng/mL (<0.06)
[2018-08-16] MEDS ORDERED: NAPROSYN500 MG PO (09:16)
[2018-08-16] MEDS ORDERED: NORCO 5-325 TA1 EAC1 PO (09:16)
[2018-08-16 09:19] LABS: ABSOLUTE NEUTROPHILS 0.9 thou/uL (1.4-8.2)
[2018-08-16 09:21] LABS: ANISOCYTOSIS 1+
[2018-08-16 11:28] VITALS: BP 120/73
== END 2018-08-16 11:35 | disposition home or self-care (01) ==
LOC: ER 06:30
PROVIDERS: Emergency Medicine
DX: I31.3 Pericardial effusion (noninflammatory) (principal); M32.9 Systemic lupus erythematosus, unspecified; D86.9 Sarcoidosis, unspecified; G43.909 Migraine, unspecified, not intractable, without status migrainosus; I10 Essential (primary) hypertension; K21.9 Gastro-esophageal reflux disease without esophagitis; Z86.79 Personal history of other diseases of the circulatory system; Z88.8 Allergy status to other drugs, medicaments and biological substances; Z88.5 Allergy status to narcotic agent; Z90.710 Acquired absence of both cervix and uterus; Z90.10 Acquired absence of unspecified breast and nipple; Z96.641 Presence of right artificial hip joint

== ENCOUNTER 2019-02-06 04:53 | Emergency (ER) | payer OTHER ==
[~2019-02-06] VITALS: Ht 157.5 cm; Wt 86.2 kg
[~2019-02-06 04:53] MED LIST changes: +NORCO 5-325 TA1 EAC1 PO
[2019-02-06 05:49] LABS: HEMATOCRIT 33.3 % (37.0-47.0); HEMOGLOBIN 10.5 gm/dL (12.0-15.0); MCH 28.5 pg (26.0-34.0); MCHC 31.7 g/dL (28.0-37.0); MCV 89.7 fL (80.0-100.0); PLATELET COUNT 171 thou/uL (150-400); RBC 3.71 mil/uL (4.20-5.00); RDW 16.5 % (10.5-14.5); WBC 3.4 thou/uL (4.0-11.0)
[2019-02-06 05:56] LABS: CALCIUM 8.9 mg/dL (8.5-10.1); CREATININE 0.8 mg/dL (0.6-1.0); POTASSIUM 3.4 mmol/L (3.5-5.1)
[2019-02-06] MEDS ORDERED: ZOFRAN ODT4 MG PO (06:09)
[2019-02-06 07:19] VITALS: BP 132/68
--- NOTE | 2019-02-06 08:36 | EKG ---
[place] [address] [place] [address] ELECTROCARDIOGRAM REPORT Name: MARIA D ARCOS [facility] [id number] Admission: 02/06/19 Attend Phys: Discharge: 02/06/19 Date of : 64 Report #: [id number] THIS REPORT FOR: //name// [facility] ED Test Date: 2019-02-06 Test Time: 05:40:09 Pat Name: MARIA D ARCOS Department: Room: Gender: F Medical Lab Assistant: ELISEO : 1960 Requested By: Sarai Christopher Order Number: [id number] MD: Troy Dang Measurements Intervals [place] Rate: 82 P: 17 [place]: 129 QRS: 27 QRSD: 140 T: 57 QT: 424 QTc: 496 Interpretive Statements Sinus rhythm Left bundle branch block Baseline wander in lead(s) V4 Compared to ECG 08/16/2018 06:41:24 No significant changes Electronically Signed On 02-06-2019 8:35:54 CLOTHES IRONER by Troy Dang [email or web address] <ELECTRONICALLY SIGNED> By: Troy Dang MD, [facility] 02/06/19 0835 9 Troy Dang MD, [facility] /EPI
[2019-02-06 11:19] LABS: ABSOLUTE NEUTROPHILS 1.6 thou/uL (1.4-8.2)
[2019-02-06 11:20] LABS: ANISOCYTOSIS 1+; ATYPICAL LYMPHS 2 %
== END 2019-02-06 07:20 | disposition home or self-care (01) ==
LOC: ER 04:53
PROVIDERS: Emergency Medicine
DX: J11.1 Influenza due to unidentified influenza virus with other respiratory manifestations (principal); I10 Essential (primary) hypertension; K21.9 Gastro-esophageal reflux disease without esophagitis; G43.909 Migraine, unspecified, not intractable, without status migrainosus; Z87.440 Personal history of urinary (tract) infections; Z90.710 Acquired absence of both cervix and uterus; Z96.641 Presence of right artificial hip joint; Z88.6 Allergy status to analgesic agent

== ENCOUNTER 2019-12-27 12:39 | Emergency (ER) | payer OTHER ==
[~2019-12-27] VITALS: Ht 157.5 cm; Wt 86.2 kg
[2019-12-27 13:44] LABS: HEMATOCRIT 38.9 % (37.0-47.0); HEMOGLOBIN 12.6 gm/dL (12.0-15.0); MCHC 32.4 g/dL (28.0-37.0); MCV 92.5 fL (80.0-100.0); PLATELET COUNT 230 thou/uL (150-400); RDW 14.6 % (10.5-14.5); WBC 2.6 thou/uL (4.0-11.0)
[2019-12-27 13:44] LABS: URINE BILIRUBIN NEGATIVE (Negative); URINE BLOOD NEGATIVE (Negative); URINE CLARITY CLEAR; URINE COLOR YELLOW; URINE GLUCOSE-RANDOM* NEGATIVE (Negative); URINE KETONES NEGATIVE (Negative); URINE LEUKOCYTES-REFLEX NEGATIVE (Negative); URINE NITRITE-REFLEX NEGATIVE (Negative); URINE PROTEIN (DIPSTICK) NEGATIVE (Negative); URINE UROBILINOGEN 0.2 E.U./dl (0.2-1.0)
[2019-12-27 14:05] LABS: ALBUMIN 4.2 g/dL (3.4-5.0); CALCIUM 9.5 mg/dL (8.5-10.1); POTASSIUM 3.3 mmol/L (3.5-5.1); TOTAL BILIRUBIN 0.3 mg/dL (0.2-1.0); TOTAL PROTEIN 7.3 g/dL (6.4-8.2)
[2019-12-27 14:13] LABS: ABSOLUTE NEUTROPHILS 1.1 thou/uL (1.4-8.2); ATYPICAL LYMPHS 1 %
[2019-12-27 15:15] VITALS: BP 111/60
--- NOTE | 2019-12-29 07:10 | EKG ---
[facility] [place] [address] ELECTROCARDIOGRAM REPORT Name: MARIA D ARCOS Room #: DEP [facility]#: [id number] Admission: 12/27/19 Attend Phys: Discharge: 12/27/19 Date of : 64 Report #: [id number] THIS REPORT FOR: cc: FAM - Family physician unknown FAM - Family physician unknown Benjamín Quijano MD [facility] ~ THIS REPORT FOR: //name// [facility] ED Test Date: 2019-12-27 Test Time: 13:35:05 Pat Name: MARIA D ARCOS Department: Room: Gender: F Release Manager: : 1960 Requested By: Kwaku Simmons Order Number: [id number] MD: Benjamín Quijano Measurements Intervals [place] Rate: 63 P: 7 [place]: 176 QRS: 11 QRSD: 149 T: 147 QT: 469 QTc: 481 Interpretive Statements Sinus rhythm Left bundle branch block Compared to ECG 02/06/2019 05:40:09 No significant changes Electronically Signed On 12-29-2019 7:10:11 AUTOMOBILE DETAILER by Benjamín Quijano [email or web address] <ELECTRONICALLY SIGNED> By: Benjamín Quijano MD, FACC 12/29/19 0710 34 34 Benjamín Quijano MD, FAC /EPI
== END 2019-12-27 15:29 | disposition home or self-care (01) ==
LOC: ER 12:39
PROVIDERS: Emergency Medicine
DX: J06.9 Acute upper respiratory infection, unspecified (principal); B97.89 Other viral agents as the cause of diseases classified elsewhere; I10 Essential (primary) hypertension; G43.909 Migraine, unspecified, not intractable, without status migrainosus; K21.9 Gastro-esophageal reflux disease without esophagitis; Z90.710 Acquired absence of both cervix and uterus; Z79.899 Other long term (current) drug therapy; Z79.82 Long term (current) use of aspirin; Z88.5 Allergy status to narcotic agent; Z20.828 Contact with and (suspected) exposure to other viral communicable diseases

== ENCOUNTER 2020-01-29 12:43 | Emergency (ER) | payer OTHER ==
[~2020-01-29] VITALS: Ht 157.5 cm; Wt 86.2 kg
[2020-01-29 15:11] LABS: ABSOLUTE NEUTROPHILS 2.4 thou/uL (1.4-8.2); BASOPHILS 0.9 % (0.0-2.0); EOSINOPHILS 1.7 % (0.0-3.0); HEMATOCRIT 37.7 % (37.0-47.0); LYMPHOCYTES 28.3 % (24.0-44.0); MCHC 31.8 g/dL (28.0-37.0); MCV 91.3 fL (80.0-100.0); MONOCYTES 12.3 % (1.0-8.0); PLATELET COUNT 237 thou/uL (150-400); POLYS 56.8 % (36.0-66.0); RBC 4.13 mil/uL (4.20-5.00); RDW 14.7 % (10.5-14.5); WBC 4.2 thou/uL (4.0-11.0)
[2020-01-29 15:17] LABS: ANION GAP 10 mmol/L (7-16); BUN 12 mg/dL (7-18); CALCIUM 9.2 mg/dL (8.5-10.1); CHLORIDE 107 mmol/L (98-107); CO2 26 mmol/L (21-32); CREATININE 0.9 mg/dL (0.6-1.0); GLUCOSE 90 mg/dL (74-106); POTASSIUM 3.9 mmol/L (3.5-5.1); SODIUM 143 mmol/L (136-145)
[2020-01-29 15:25] LABS: TROPONIN-I <0.06 ng/mL (<0.06)
[2020-01-29 16:42] LABS: URINE BILIRUBIN NEGATIVE (Negative); URINE BLOOD NEGATIVE (Negative); URINE CLARITY CLEAR; URINE COLOR YELLOW; URINE GLUCOSE-RANDOM* NEGATIVE (Negative); URINE KETONES NEGATIVE (Negative); URINE LEUKOCYTES-REFLEX NEGATIVE (Negative); URINE NITRITE-REFLEX NEGATIVE (Negative); URINE PROTEIN (DIPSTICK) NEGATIVE (Negative); URINE SPECIFIC GRAVITY <= 1.005 (1.005-1.035); URINE UROBILINOGEN 0.2 E.U./dl (0.2-1.0)
[2020-01-29 17:45] VITALS: BP 129/61
[2020-01-29] MEDS ORDERED: ULTRAM 50MG TAB50 MG PO (17:55)
[2020-01-29] MEDS ORDERED: ONDANSETRON HCL4 M2 PO (17:55)
--- NOTE | 2020-01-30 08:48 | EKG ---
[facility] [place] [address] ELECTROCARDIOGRAM REPORT Name: MARIA D ARCOS [facility] #: [facility] [id number] Admission: 01/29/20 Attend Phys: Discharge: 01/29/20 Date of : 64 Report #: [id number] [facility] ED Test Date: 2020-01-29 Test Time: 12:56:17 Pat Name: MARIA D ARCOS Department: Room: Gender: F Road Crew Member: BASIL : 1960 Requested By: George Saini Order Number: [id number] MD: Benjamín uQijano Measurements Intervals [place] Rate: 65 P: 42 [place]: 147 QRS: -7 QRSD: 151 T: 71 QT: 477 QTc: 496 Interpretive Statements Sinus rhythm Left bundle branch block Compared to ECG 12/27/2019 13:35:05 No significant changes Electronically Signed On 01-30-2020 8:48:30 TRAILER TRUCK DRIVER by Benjamín Quijano [email or web address] <ELECTRONICALLY SIGNED> By: Benjamín Quijano MD, [facility] 01/30/20 0848 1256 1256 Benjamín Quijano MD, FACC /EPI
== END 2020-01-29 18:10 | disposition home or self-care (01) ==
LOC: ER 12:43
PROVIDERS: Emergency Medicine; Physician Assistant
DX: M25.512 Pain in left shoulder (principal); R07.89 Other chest pain; R06.02 Shortness of breath; G43.909 Migraine, unspecified, not intractable, without status migrainosus; I10 Essential (primary) hypertension; K21.9 Gastro-esophageal reflux disease without esophagitis; Z20.828 Contact with and (suspected) exposure to other viral communicable diseases; Z90.711 Acquired absence of uterus with remaining cervical stump; Z96.641 Presence of right artificial hip joint; Z79.899 Other long term (current) drug therapy; Z79.82 Long term (current) use of aspirin; Z88.6 Allergy status to analgesic agent; Z88.5 Allergy status to narcotic agent

== ENCOUNTER 2020-06-21 09:15 | Emergency (ER) | payer OTHER ==
[~2020-06-21] VITALS: Ht 157.5 cm; Wt 89.8 kg
[~2020-06-21 09:15] MED LIST changes: +ULTRAM 50MG TAB50 MG PO
[2020-06-21 10:43] LABS: URINE BILIRUBIN NEGATIVE (Negative); URINE BLOOD NEGATIVE (Negative); URINE CLARITY CLEAR; URINE COLOR YELLOW; URINE GLUCOSE-RANDOM* NEGATIVE (Negative); URINE KETONES NEGATIVE (Negative); URINE LEUKOCYTES-REFLEX NEGATIVE (Negative); URINE NITRITE-REFLEX NEGATIVE (Negative); URINE PROTEIN (DIPSTICK) NEGATIVE (Negative); URINE UROBILINOGEN 0.2 E.U./dl (0.2-1.0)
[2020-06-21] MEDS ORDERED: ULTRAM 50MG TAB50 MG PO (11:30)
[2020-06-21 11:40] VITALS: BP 132/66
== END 2020-06-21 11:40 | disposition home or self-care (01) ==
LOC: ER 09:15
PROVIDERS: Emergency Medicine
DX: R10.9 Unspecified abdominal pain (principal); I10 Essential (primary) hypertension; K21.9 Gastro-esophageal reflux disease without esophagitis; G43.909 Migraine, unspecified, not intractable, without status migrainosus; M32.9 Systemic lupus erythematosus, unspecified; Z88.5 Allergy status to narcotic agent; Z79.899 Other long term (current) drug therapy; Z79.82 Long term (current) use of aspirin; Z96.651 Presence of right artificial knee joint; Z90.710 Acquired absence of both cervix and uterus

== ENCOUNTER 2020-08-02 12:46 | Emergency (ER) | payer OTHER ==
[~2020-08-02] VITALS: Ht 157.5 cm; Wt 89.8 kg
[2020-08-02] MEDS ORDERED: ACYCLOVIR15 GM TOP (13:40)
[2020-08-02] MEDS ORDERED: PREDNISONE 20 M20 MG PO (13:41)
[2020-08-02 14:10] VITALS: BP 107/52
--- NOTE | 2020-08-02 15:31 | EKG ---
[place] [address] [address] [facility] [place] [address] ELECTROCARDIOGRAM REPORT Name: MARIA D ARCOS Room #: [facility] Zuri#: [id number] Admission: 08/02/20 Attend Phys: Discharge: 08/02/20 Date of : 64 Report #: [id number] [facility] ED Test Date: 2020-08-02 Test Time: 13:00:26 Pat Name: MARIA D ARCOS Department: Room: Gender: F Web Marketing Strategist: RUFINO : 1960 Requested By: Sina Shoemaker Order Number: [id number] MD: Benjamín Quijano Measurements Intervals [place] Rate: 70 P: 19 [place]: 148 QRS: 45 QRSD: 157 T: 14 QT: 453 QTc: 489 Interpretive Statements Sinus rhythm Left bundle branch block Compared to ECG 01/29/2020 12:56:17 No significant changes Electronically Signed On 08-02-2020 15:31:13 CDT by Benjamín Quijano [email or web address] <ELECTRONICALLY SIGNED> By: Benjamín Quijano MD, [facility] 08/02/20 1531 1300 [facility] Benjamín Quijano MD, FACC /EPI
== END 2020-08-02 14:10 | disposition home or self-care (01) ==
LOC: ER 12:46
DX: R06.00 Dyspnea, unspecified (principal); Z20.822 Contact with and (suspected) exposure to COVID-19; R09.02 Hypoxemia; G43.909 Migraine, unspecified, not intractable, without status migrainosus; I10 Essential (primary) hypertension; K21.9 Gastro-esophageal reflux disease without esophagitis; Z98.890 Other specified postprocedural states; Z90.710 Acquired absence of both cervix and uterus; Z88.5 Allergy status to narcotic agent

== ENCOUNTER 2020-08-18 12:05 | Emergency (ER) | payer OTHER ==
[~2020-08-18] VITALS: Ht 172.7 cm; Wt 89.8 kg
[~2020-08-18 12:05] MED LIST changes: +ACYCLOVIR15 GM TOP
[2020-08-18 12:32] VITALS: BP 135/75
== END 2020-08-18 14:36 | disposition home or self-care (01) ==
LOC: ER 12:05
DX: U07.1 COVID-19 (principal); Z88.5 Allergy status to narcotic agent

== ENCOUNTER 2020-08-20 06:49 | Emergency (ER) | payer OTHER ==
[~2020-08-20] VITALS: Ht 157.5 cm; Wt 89.8 kg
[2020-08-20] MEDS ORDERED: MEDROLDOSEPACK PO (08:19)
[2020-08-20] MEDS ORDERED: GUAIFEN-CODEINE10 ML PO (08:19)
[2020-08-20 08:55] VITALS: BP 144/79
== END 2020-08-20 08:57 | disposition home or self-care (01) ==
LOC: ER 06:49
DX: U07.1 COVID-19 (principal); I10 Essential (primary) hypertension; G43.909 Migraine, unspecified, not intractable, without status migrainosus; Z88.5 Allergy status to narcotic agent; Z79.899 Other long term (current) drug therapy; Z90.710 Acquired absence of both cervix and uterus

== ENCOUNTER 2020-08-25 10:38 | Emergency (ER) | payer OTHER ==
[~2020-08-25] VITALS: Ht 157.5 cm; Wt 89.4 kg
[~2020-08-25 10:38] MED LIST changes: +GUAIFEN-CODEINE10 ML PO
[2020-08-25 11:19] LABS: ABSOLUTE NEUTROPHILS 1.9 thou/uL (1.4-8.2); BASOPHILS 2.3 % (0.0-2.0); EOSINOPHILS 1.7 % (0.0-3.0); HEMATOCRIT 39.6 % (37.0-47.0); HEMOGLOBIN 12.9 gm/dL (12.0-15.0); LYMPHOCYTES 24.1 % (24.0-44.0); MCH 30.3 pg (26.0-34.0); MCHC 32.5 g/dL (28.0-37.0); MCV 93.1 fL (80.0-100.0); MONOCYTES 21.4 % (1.0-8.0); PLATELET COUNT 188 thou/uL (150-400); POLYS 50.5 % (36.0-66.0); RBC 4.25 mil/uL (4.20-5.00); WBC 3.7 thou/uL (4.0-11.0)
[2020-08-25 11:45] LABS: ANION GAP 8 mmol/L (7-16); BUN 14 mg/dL (7-18); CALCIUM 9.4 mg/dL (8.5-10.1); CHLORIDE 103 mmol/L (98-107); CO2 30 mmol/L (21-32); CREATININE 1.1 mg/dL (0.6-1.0); GLUCOSE 102 mg/dL (74-106); SODIUM 141 mmol/L (136-145)
[2020-08-25 11:59] LABS: MAGNESIUM 1.7 mg/dL (1.8-2.4); SGOT 28 U/L (15-37); SGPT 45 U/L (14-59); TOTAL BILIRUBIN 0.4 mg/dL (0.2-1.0); TOTAL PROTEIN 7.4 g/dL (6.4-8.2)
[2020-08-25 12:00] LABS: ALBUMIN 3.7 g/dL (3.4-5.0); TROPONIN-I <0.06 ng/mL (<0.06)
--- NOTE | 2020-08-25 12:23 | EKG ---
[place] [address] [employer] [place] [place] [address] ELECTROCARDIOGRAM REPORT Name: MARIA D ARCOS [facility] [id number] Admission: 08/25/20 Attend Phys: Discharge: Date of : 64 Report #: [id number] [facility] ED Test Date: 2020-08-25 Test Time: 10:45:34 Pat Name: MARIA D ARCOS Department: Room: Gender: F Open Hearth Melter: ARYAN : 1960 Requested By: Khai Schmidt Order Number: [id number] MD: Benjamín Quijano Measurements Intervals [place] Rate: 107 P: 25 [place]: 134 QRS: -22 QRSD: 132 T: 61 QT: 368 QTc: 491 Interpretive Statements Sinus tachycardia Left bundle branch block Compared to ECG 08/02/2020 13:00:26 Sinus rhythm no longer present Electronically Signed On 08-25-2020 12:23:18 CDT by Benjamín Quijano [email or web address] <ELECTRONICALLY SIGNED> By: Benjamín Quijano MD, [facility] 08/25/20 1223 1045 1045 Benjamín Quijano MD, FACC /EPI
[2020-08-25] MEDS ORDERED: ZOFRAN ODT4 MG PO (12:54)
[2020-08-25 13:15] VITALS: BP 127/86
== END 2020-08-25 13:15 | disposition home or self-care (01) ==
LOC: ER 10:38
PROVIDERS: Emergency Medicine
DX: U07.1 COVID-19 (principal); E86.0 Dehydration; G43.909 Migraine, unspecified, not intractable, without status migrainosus; I10 Essential (primary) hypertension; K21.9 Gastro-esophageal reflux disease without esophagitis; D86.9 Sarcoidosis, unspecified; Z90.710 Acquired absence of both cervix and uterus; Z79.891 Long term (current) use of opiate analgesic; Z79.899 Other long term (current) drug therapy; Z79.51 Long term (current) use of inhaled steroids; Z88.6 Allergy status to analgesic agent; Z88.8 Allergy status to other drugs, medicaments and biological substances